=== PATIENT | female | born 1970 | race Native Hawaiian/Other Pacific Islander ===

== ENCOUNTER 2017-03-14 10:28 | Emergency (ER) | payer OTHER ==
[2017-03-14 10:32] VITALS: BMI 29.2
[2017-03-14 10:35] VITALS: RESP 18
[2017-03-14] MEDS ORDERED: Tetanus/Diphtheria Toxoids 0.5 ml Syringe IM ONE ×2 (11:42→12:27)
--- NOTE | 2017-03-14 11:58 | C.PDOC ---
History Of Present Illness 46 yr old female presents to the ER s/o sustaining a injury while at work today. 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 Otherwise, pt Denies left hand pain, deformity, weakness, sensory or vascular deficits to Left hand. Denies nay other active complaints. Ambulate to Ed for evaluation, not in any apparent distress. 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 Musculoskeletal: Negative for: Arm Pain, Hand Pain Skin: Positive for: Other ((+) Cut to the left index finger) Neurological: Negative for: Weakness, Numbness Physical Exam - Physical Exam Appears: Non-toxic, No Acute Distress Skin: Warm, Dry, Other ((+) superficial laceration to the tip of left index finger. NO EDEMA, NO WOUND DISCAHRGES, NO CLELULITIS.) Head: Normacephalic Eye(s): bilateral: PERRL Nose: No Flaring, No Discharge Oral Mucosa: Moist Throat: No Drooling Neck: Trachea Midline, Supple Cardiovascular: Rhythm Regular, No Murmur Respiratory: No Decreased Breath Sounds, No Accessory Muscle Use, No Rales, No Rhonchi, No Stridor, No Wheezing Gastrointestinal/Abdominal: Soft, No Tenderness, No Distention, No Guarding Extremity: Normal ROM (Left hand), Capillary Refill (<2 secs), No Swelling Neurological/Psych: Oriented x3, Normal Speech, Normal Motor, Normal Sensation, Normal Reflexes ED Course And Treatment - Laboratory Results Result Diagrams: 03/14/17 12:04 O2 Sat by Pulse Oximetry: 98 (RA) Pulse Ox Interpretation: Normal Progress Note: On re-eval, pt is afebrile, hemodynamicaly stable. NOn-toxic. Left hand: exam c/w superificial laceration to tip of index finger. FAROM, no neurovascular deficits, no deformity. Needle stick protocol followed. Pt received tetanus, HIV prophy tx offered and pt refuseda t present time. Pt advised. ref. to f/u with Employee [employer] in 1-2 days for re-eavl. and further tx. return if any new changes. Medical Decision Making Medical Decision Making: PLAN: * Labs * HCG * Urinalysis * Tetanus IM Disposition - Disposition Disposition: HOME/ ROUTINE Disposition Time: 12:12 Condition: STABLE Additional Instructions: FOLLOW UP WITH EM[employer]OYEE [facility] IN 2 DAYS FOR RE-EVALUATION AND FURTHER TREATMENT NEED RETURN TO ED IFANY WORSENING OR NEW CHANGES. Instructions: Needle Stick Injuries (ED) Forms: [employer] ([place]) - Clinical Impression Clinical Impression: Needle stick injury - PA / INTERN ARCHITECT / Resident Statement MD/DO has reviewed & agrees with the documentation as recorded. - Scribe Statement The provider has reviewed the documentation as recorded by the Scribe Yuliya Coronel All medical record entries made by the Scribe were at my direction and personally dictated by me. I have reviewed the chart and agree that the record accurately reflects my personal performance of the history, physical exam, medical decision making, and the department course for this patient. I have also personally directed, reviewed, and agree with the discharge instructions and disposition.
[2017-03-14 12:08] LABS: BASO # 0.1 K/uL (0.0-0.2); BASO % 1.5 % (0.0-2.0); EOS # 0.2 K/uL (0.0-0.7); EOS % 2.2 % (0.0-4.0); HEMOGLOBIN 12.4 g/dL (11.0-16.0); LYMPH # 2.1 K/uL (1.0-4.3); LYMPH % 29.9 % (20.0-40.0); MEAN CORPUSCULAR HEMOGLOBIN 30.3 pg (27.0-31.0); MEAN CORPUSCULAR HGB CONC 35.1 g/dL (33.0-37.0); MEAN PLATELET VOLUME 7.2 fL (7.2-11.7); MONO # 0.3 K/uL (0.0-0.8); MONO % 4.6 % (0.0-10.0); NEUT # 4.4 K/uL (1.8-7.0); NEUT % 61.8 % (50.0-75.0); RBC 4.08 Mil/uL (3.80-5.20); RED CELL DISTRIBUTION WIDTH 14.4 % (11.5-14.5); WHITE BLOOD COUNT 7.1 K/uL (4.8-10.8)
[2017-03-14 12:11] LABS: MEAN CELL VOLUME 86.2 fL (81.0-99.0)
[2017-03-14 12:28] LABS: ALB/GLOB RATIO 1.2 (1.0-2.1); ALBUMIN 4.1 g/dL (3.5-5.0); ALT/SGPT 43 U/L (9-52); AMYLASE 104 U/L (30-110); AST/SGOT 27 U/L (14-36); BLOOD UREA NITROGEN 11 mg/dL (7-17); GFR AFRICAN-AMERICAN > 60; GFR NON-AFRICAN AMERICAN > 60
[2017-03-14 12:30] VITALS: BP 146/90; PULSE 72; TEMP 98.1; O2SAT 97
[2017-03-14 12:35] LABS: HCG,QUALITATIVE URINE NEGATIVE (NEGATIVE)
[2017-03-14 12:36] LABS: URINE BACTERIA RARE (<OCC); URINE BILIRUBIN NEGATIVE (NEGATIVE); URINE BLOOD 1+ (NEGATIVE); URINE CLARITY Clear (Clear); URINE COLOR Straw (YELLOW); URINE GLUCOSE (UA) NORMAL (Normal); URINE LEUKOCYTE ESTERASE 1+ Leu/uL (Negative); URINE NITRATE NEGATIVE (NEGATIVE); URINE PROTEIN NEGATIVE (NEGATIVE); URINE UROBILINOGEN NORMAL mg/dL (0.2-1.0)
[2017-03-14 12:58] LABS: HEPATITIS B SURFACE AG Negative (NEGATIVE)
[2017-03-14 13:03] LABS: HEPATITIS A IGM NEGATIVE (NEGATIVE); HEPATITIS B CORE AB NEGATIVE (NEGATIVE)
[2017-03-14 13:15] LABS: HEPATITIS C ANTIBODY NEGATIVE (NEGATIVE)
== END 2017-03-14 12:20 | disposition home or self-care (01) ==
LOC: C.ER 10:28
DX: S61.211A Laceration without foreign body of left index finger without damage to nail, initial encounter (principal); W45.8XXA Other foreign body or object entering through skin, initial encounter; Y92.238 Other place in hospital as the place of occurrence of the external cause; Y99.0 Civilian activity done for income or pay